=== PATIENT | male | born 1955 | race Caucasian/White ===

== ENCOUNTER → 2017-04-15 | Outpatient (CLI) | payer OTHER | END | disposition home or self-care (01) | LOC: GMAB 10:59 | PROVIDERS: ATTEND Family Medicine | DX: E03.9 Hypothyroidism, unspecified (principal) ==

== ENCOUNTER → 2018-04-13 | Outpatient (CLI) | payer OTHER | LOC: GMAB 10:33 | PROVIDERS: ATTEND Family Medicine | DX: Z00.00 Encounter for general adult medical examination without abnormal findings (principal) ==

== ENCOUNTER → 2019-10-07 | Outpatient (CLI) | payer SELFPAY | LOC: LAB.O 13:49 | PROVIDERS: ATTEND Nurse Practitioner Family | DX: L02.222 Furuncle of back [any part, except buttock and flank] (principal) ==

== ENCOUNTER → 2020-01-04 | Outpatient (CLI) | payer MEDICARE | CPT/HCPCS: 84439; 84443; 84481; G0103 ==